=== PATIENT | male | born 1960 | race Caucasian/White ===

== ENCOUNTER → 2016-04-10 | Day surgery (SDC) | payer OTHER ==
[~2016-04-10] MED LIST: LIDOCAINE VISCOUS 2% 15ML UD ONE; SODIUM CHLORIDE LOCK 10 ML ONE; diphenhdrAMINE HCL 50 MG/1 ML VL ONE
[2016-04-10 07:24] LABS: Basophils # (auto) 0 uL; Basophils % (auto) 0.6 % (0.0-2.0); Eosinophils # (auto) 0.1 uL; Eosinophils % (auto) 1.6 % (0.0-7.0); Hematocrit 43.4 % (41.0-53.0); Hemoglobin 14.5 g/dL (13.5-17.5); Lymphocytes # (auto) 2.2 uL; Lymphocytes % (auto) 35.8 % (10.0-50.0); Mean Corpuscular Hgb Conc. 33.3 g/dL (32.0-36.0); Mean Corpuscular Volume 86.9 fL (80.0-100.0); Mean Platelet Volume 9.1 fL (7.4-10.4); Monocytes # (auto) 0.5 uL; Monocytes % (auto) 7.6 % (0.0-12.0); Neutrophils # (auto) 3.4 uL; Neutrophils % (auto) 54.4 % (37.0-80.0); Platelet Count (auto) 240 10^3/uL (140-450); Red Cell Distribution Width 13.7 % (11.6-16.0); White Blood Cell 6.2 10^3/uL (4.4-10.8)
[2016-04-10 07:31] LABS: INR 1.15 (0.9-1.15); Partial Thromboplastin Time 26.3 sec (22.64-33.71); Prothrombin Time 11.8 sec (9.37-12.3)
[2016-04-10] MEDS: fentaNYL CITRATE 100 MCG/2 ML VL ONE ×3 (09:28→09:39)
[2016-04-10] MEDS: MIDAZOLAM HCL 5 MG/ML-1ML VIAL ONE ×3 (09:28→09:39)
[2016-04-10 10:25] VITALS: BP 125/62
== END | disposition home or self-care (01) ==
LOC: GI 06:44
PROVIDERS: ATTEND Internal Medicine Gastroenterology
DX: Z12.11 Encounter for screening for malignant neoplasm of colon (principal); K62.89 Other specified diseases of anus and rectum; Z80.0 Family history of malignant neoplasm of digestive organs; K20.9 Esophagitis, unspecified; K21.9 Gastro-esophageal reflux disease without esophagitis; K22.70 Barrett's esophagus without dysplasia
CPT/HCPCS: 36415; 43235; 45378; 85025; 85610; 85730; J1200; J2250; J3010; J7030

== ENCOUNTER 2018-10-18 07:45 | Inpatient (IN) | payer OTHER ==
[~2018-10-18] VITALS: Ht 177.8 cm; Wt 96.5 kg
[2018-10-18] VITALS (12 sets, daily range): BP systolic 109–130; BP diastolic 68–79
[2018-10-18] MEDS ORDERED: ceFAZolin 1GM/50ML 100 ML IV ONE (08:23)
[2018-10-18] MEDS ORDERED: ACETAMINOPHEN IV 100 ML IV ONE (08:23)
[2018-10-18] MEDS ORDERED: ACETAMINOPHEN IV 1000 MG/100ML (10MG/ML) IV ONE (08:30)
[2018-10-18] MEDS ORDERED: PREGABALIN CAPSULE 75 MG CAP PO ONE (08:30)
[2018-10-18] MEDS ORDERED: CELECOXIB 100 MG CAP PO ONE (08:30)
[2018-10-18] MEDS ORDERED: BUPIVACAINE W/ EPINEPH 0.25% INJ 50ML MDV ONE (09:50)
[2018-10-18] MEDS ORDERED: TRANEXAMIC ACID 20 ML ONE (09:50)
[2018-10-18] MEDS ORDERED: KETOROLAC TROMETH 30 MG/ML 1ML VIAL ONE (09:51)
[2018-10-18] MEDS ORDERED: MORPHINE SULF(PF) 0.5MG/ML 10ML VIAL ONE ×2 (09:53→12:12)
[2018-10-18] MEDS ORDERED: TETRACAINE 1% INJ 2 ML VIAL IJ ONE (12:05)
[2018-10-18] MEDS ORDERED: MIDAZOLAM HCL 1MG/1ML-2 ML VIAL ONE ×2 (12:09→12:18)
[2018-10-18] MEDS ORDERED: PHENYLEPHRINE HCL 10 MG/ML VL ONE (12:12)
[2018-10-18] MEDS ORDERED: SODIUM CHLORIDE LOCK 20 ML ONE (12:12)
[2018-10-18] MEDS ORDERED: ePHEDrine SULFATE 50 MG/ML AMP ONE (12:12)
[2018-10-18] MEDS ORDERED: LIDOCAINE 2% (LOCAL ANESTH.) PF 5ml SDV ONE (12:34)
[2018-10-18] MEDS ORDERED: PROPOFOL 10 MG/ML 20 ML IV ONE ×3 (12:34→14:01)
[2018-10-18] MEDS ORDERED: diphenhdrAMINE HCL 50 MG/1 ML VL ONE (12:38)
[2018-10-18] MEDS ORDERED: METOCLOPRAMIDE HCL 5MG/ml INJ 2ml VIAL ONE (12:38)
[2018-10-18] MEDS ORDERED: diphenhdrAMINE HCL 50 MG/1 ML VL IV PRN (14:00)
[2018-10-18] MEDS ORDERED: KETOROLAC TROMETH 15 mg/ml 1ML VL IV PRN (14:00)
[2018-10-18] MEDS ORDERED: ePHEDrine SULFATE 50 MG/ML AMP IV PRN (14:00)
[2018-10-18] MEDS ORDERED: HYDROmorphone HCL 2 MG/ML VL IV PRN (14:00)
[2018-10-18] MEDS ORDERED: ONDANSETRON HCL 4 MG/2 ML VIAL IV ONE (14:00)
[2018-10-18] MEDS ORDERED: NALOXONE HCL 0.4 MG/ML VIAL IV PRN ×2 (14:00)
[2018-10-18] MEDS ORDERED: LACTATED RINGER'S 1,000 ML IV SCH (14:36)
[2018-10-18] MEDS ORDERED: ACETAMINOPHEN 325 MG TAB PO PRN (14:45)
--- NOTE | 2018-10-18 16:06 | NUR ---
MS admit from OR SEDA LEE admitted to tele/MS after SBAR received. Patient oriented to KEE BARNES RN primary RN, unit, room 244-7, bed, and unit policies regarding patient care and visiting hours. Patient weighed by bedscale and encouraged to call if they need something. All questions and concerns addressed, patient verbalized understanding. Bed in low and locked position, rails up x2, no-slip socks on. SCD machine in place to left leg, incentive spirometry provided, patient return demonstration reinforced. Continuous pulse oximetry at bedside, q hour vital signs for duramorph recovery in place and will be monitored. Dressing to right knee clean dry intact, patient has no complaints of pain, still unable to move lower extremities. Page to physical therapy for CPM set up.
[2018-10-18] MEDS: ceFAZolin 1GM/50ML 50 ML IV SCH ×2 (16:30→21:26)
[2018-10-18] MEDS: KETOROLAC TROMETH 15 mg/ml 1ML VL IV SCH (18:00)
[2018-10-18] MEDS: TAMSULOSIN HYDROCHLORIDE 0.4 MG CAP PO SCH (18:38)
--- NOTE | 2018-10-18 19:35 | NUR ---
Opening Shift Note Assumed care of patient, awake and alert. No S/S of distress/SOB or pain. Dressing to right knee dry and intact, on CPM machine at 45 deg. Instructed on POC and to call for assist PRN, patient verbalized understanding, call light within reach, guards at bedside, will continue to monitor for changes Q1hr and PRN.
[2018-10-18] MEDS: oxyCODONE ER 10 MG TAB PO SCH (21:27)
[2018-10-18] MEDS: DOCUSATE SOD 100 MG CAP PO SCH (21:27)
[2018-10-18] MEDS: SODIUM CHLOR 0.9% PF (SALINE LOCK) 10ML VIAL/SYR IV SCH (22:48)
[2018-10-19] VITALS (19 sets, daily range): BP systolic 102–131; BP diastolic 59–85
[2018-10-19] MEDS: ONDANSETRON HCL 4 MG/2 ML VIAL IV PRN ×3 (00:11→19:44)
[2018-10-19] MEDS: KETOROLAC TROMETH 15 mg/ml 1ML VL IV SCH ×5 (00:11→23:20)
[2018-10-19] MEDS: ceFAZolin 1GM/50ML 50 ML IV SCH (02:59)
[2018-10-19] MEDS: SODIUM CHLOR 0.9% PF (SALINE LOCK) 10ML VIAL/SYR IV SCH ×3 (06:10→22:21)
[2018-10-19 06:19] LABS: Hematocrit 38.7 % (41.0-53.0); Hemoglobin 13.3 g/dL (13.5-17.5)
[2018-10-19 06:57] LABS: Potassium 4.3 mmol/L (3.5-5.1)
[2018-10-19 07:07] LABS: Albumin 3.1 g/dL (3.4-5.0); BUN/Creatinine Ratio 27.2; Bilirubin, Total 0.4 mg/dL (0.2-1.0); Calcium 8.2 mg/dL (8.5-10.1)
--- NOTE | 2018-10-19 08:15 | NUR ---
DR ZEPEDA AT BEDSIDE NO NEW ORDERS
[2018-10-19] MEDS: DOCUSATE SOD 100 MG CAP PO SCH ×2 (09:47→22:22)
[2018-10-19] MEDS: ENOXAPARIN SOD 40 MG/0.4 ML SYRINGE SC SCH (09:47)
[2018-10-19] MEDS: PANTOPRAZOLE 40 MG TAB PO SCH (09:48)
[2018-10-19] MEDS: DULoxetine HCL 30 MG CAP PO SCH (09:48)
[2018-10-19] MEDS: LISINOPRIL 10 MG TAB PO SCH (09:50)
[2018-10-19] MEDS: oxyCODONE ER 10 MG TAB PO SCH ×2 (09:51→22:21)
[2018-10-19] MEDS ORDERED: ASPI-404 PO (10:56)
[2018-10-19] MEDS ORDERED: LISI10TA6 PO (10:56)
[2018-10-19] MEDS ORDERED: OMEP20TA PO (10:56)
[2018-10-19] MEDS ORDERED: DULO60CA PO (10:56)
[2018-10-19] MEDS ORDERED: ACET-1156 PO (10:56)
[2018-10-19] MEDS ORDERED: CALCTAB25 PO (10:56)
[2018-10-19] MEDS ORDERED: TAMS0.4C36 PO (10:56)
[2018-10-19] MEDS ORDERED: SENN1TAB14 PO (10:56)
[2018-10-19] MEDS ORDERED: AMIT25TA9 PO (10:56)
--- NOTE | 2018-10-19 11:55 | NUR ---
PHYSICAL THERAPY AT BEDSIDE PATIENT UP OUT OF BED, AMBULATED WITH FWW TOE TOUCH TO BATHROOM AND AMBULATED BACK WITH STANDBY ASSIST. TOLERATED IT WELL, BACK ON CPM AT THIS TIME.
--- NOTE | 2018-10-19 13:00 | NUR ---
DR MCCOY AT BEDSIDE
--- NOTE | 2018-10-19 13:13 | NUR ---
patient removed right leg from CPM due to severe patient and discomfort. right heel up with rolled towel. patient resting.
[2018-10-19] MEDS: HYDROmorphone HCL 2 MG/ML VL IV PRN ×2 (14:44→19:45)
[2018-10-19] MEDS: TAMSULOSIN HYDROCHLORIDE 0.4 MG CAP PO SCH (17:37)
--- NOTE | 2018-10-19 20:00 | NUR ---
OPENING NOTE RECEIVED REPORT FROM MARIE RN. ASSUMING ROLE OF CARE OF PATIENT AT THIS TIME. PATIENT SHOWING NO SIGN OF DISTRESS, SHORTNESS OF BREATH, AND PATIENT STATES CONTINUOUS PAIN AT 10/10. PATIENT WILL BE MEDICATED PER PAIN PROTOCOL WHEN AVAILABLE. PATIENT CURRENTLY ON CPM MACHINE AT 45 DEGREES. BED LOWERED, CALL LIGHT WITHIN REACH, AND PATIENT WILL BE ROUNDED ON EVERY HOUR AND NEEDED.
--- NOTE | 2018-10-19 23:00 | NUR ---
PATIENT TAKEN OFF CPM. PATIENT REQUESTING TO BE TAKEN OFF AT THIS TIME. PATIENT HAS ALREADY BEEN ON THREE TIMES TODAY. PATIENT STATING WANTING TO REST LEG. WILL CONTINUE TO MONITOR
[2018-10-20] MEDS: ONDANSETRON HCL 4 MG/2 ML VIAL IV PRN ×3 (03:12→16:15)
[2018-10-20] MEDS: HYDROmorphone HCL 2 MG/ML VL IV PRN ×3 (03:12→16:15)
[2018-10-20] MEDS: KETOROLAC TROMETH 15 mg/ml 1ML VL IV SCH ×3 (06:00→17:28)
[2018-10-20 06:01] VITALS: BP 107/64
[2018-10-20 06:06] LABS: Hematocrit 36.3 % (41.0-53.0); Hemoglobin 12.6 g/dL (13.5-17.5)
[2018-10-20] MEDS: SODIUM CHLOR 0.9% PF (SALINE LOCK) 10ML VIAL/SYR IV SCH ×3 (06:23→21:29)
--- NOTE | 2018-10-20 06:23 | NUR ---
PATIENT REQUESTING TO BE PLACED ON CPM MACHINE AT A LATER TIME PER PATIENT REQUEST, THEY WOULD LIKE TO SLEEP A LITTLE LONGER AND BEING PUT ON CAUSES PAIN AND WOULD WAKE THEM UP. WILL INFORM DAYSHIFT RN.
[2018-10-20 08:10] VITALS: BP 131/74
--- NOTE | 2018-10-20 08:10 | NUR ---
Opening Shift Note Assumed care of patient, awake and alert. Patient reported pain on right knee. Right knee dressing is intact and dry.Ice was applied to right knee and elevated onto the CPM machine. Patient will be medicated per pain protocol when available. Instructed on POC and to call for assist PRN, will continue to monitor for changes.
[2018-10-20 09:00] VITALS: BP 131/74
[2018-10-20] MEDS: ENOXAPARIN SOD 40 MG/0.4 ML SYRINGE SC SCH (09:42)
[2018-10-20] MEDS: DULoxetine HCL 30 MG CAP PO SCH (09:42)
[2018-10-20] MEDS: PANTOPRAZOLE 40 MG TAB PO SCH (09:43)
[2018-10-20] MEDS: oxyCODONE ER 10 MG TAB PO SCH ×2 (09:43→21:29)
[2018-10-20] MEDS: LISINOPRIL 10 MG TAB PO SCH (09:43)
[2018-10-20] MEDS: DOCUSATE SOD 100 MG CAP PO SCH ×2 (09:44→21:29)
--- NOTE | 2018-10-20 10:00 | NUR ---
DR LOPEZ AT BEDSIDE ANESTHESIOLOGIST
--- NOTE | 2018-10-20 11:25 | NUR ---
PATIENT AMBULATING WITH PHYSICAL THERAPY
[2018-10-20 13:00] VITALS: BP 129/68
--- NOTE | 2018-10-20 13:20 | NUR ---
DR MCCOY AT BEDSIDE
--- NOTE | 2018-10-20 14:10 | NUR ---
Dressing change Dressing change performed per MD order. Patient tolerated well. Area is clean, dry, and edematous. Wound bed approximated no drainage, all grace intact.
[2018-10-20 17:00] VITALS: BP 118/67
[2018-10-20] MEDS: OXYCODONE W/ ACETAMINOPHEN 5/325MG TABLET PO PRN (17:28)
[2018-10-20] MEDS: TAMSULOSIN HYDROCHLORIDE 0.4 MG CAP PO SCH (17:28)
--- NOTE | 2018-10-20 20:00 | NUR ---
OPENING NOTE RECEIVED REPORT FROM DAYSHIFT RN. ASSUMING ROLE OF CARE OF PATIENT AT THIS TIME. PATIENT SHOWING NO SIGN OF DISTRESS, SHORTNESS OF BREATH, AND PATIENT DENIES ANY PAIN AT THIS TIME. PATIENT EDUCATED ON PLAN OF CARE FOR THE NIGHT AND PATIENT VERBALIZED UNDERSTANDING. PATIENT ON CPM AT THIS TIME. BED LOWERED, CALL LIGHT WITHIN REACH, AND PATIENT WILL BE ROUNDED ON EVERY HOUR AND NEEDED.
--- NOTE | 2018-10-20 22:00 | NUR ---
PATIENT TAKEN OFF CPM AT THIS TIME. PATIENT REQUESTING TO BE TAKEN OFF AT THIS TIME. PER PATIENT, THEY HAVE BEEN OFF MOST OF THE DAY. WOULD LIKE TO REST LEG AT THIS TIME.
[2018-10-21 00:41] VITALS: BP 109/64
[2018-10-21] MEDS: ONDANSETRON HCL 4 MG/2 ML VIAL IV PRN (01:42)
[2018-10-21] MEDS: HYDROmorphone HCL 2 MG/ML VL IV PRN (01:42)
[2018-10-21] MEDS: KETOROLAC TROMETH 15 mg/ml 1ML VL IV SCH ×3 (05:19→11:41)
[2018-10-21] MEDS: SODIUM CHLOR 0.9% PF (SALINE LOCK) 10ML VIAL/SYR IV SCH ×2 (05:19→14:45)
[2018-10-21 05:43] VITALS: BP 116/55
[2018-10-21] MEDS: OXYCODONE W/ ACETAMINOPHEN 5/325MG TABLET PO PRN ×2 (05:48→17:34)
--- NOTE | 2018-10-21 08:00 | NUR ---
Opening Shift Note Assumed care of patient, awake and alert. No S/S of distress/SOB or pain. Instructed on POC and to call for assist PRN, will continue to monitor for changes Q1hr and PRN.
[2018-10-21 08:18] LABS: Hematocrit 33.6 % (41.0-53.0); Hemoglobin 11.6 g/dL (13.5-17.5)
[2018-10-21 08:49] VITALS: BP 94/54
[2018-10-21] MEDS: ENOXAPARIN SOD 40 MG/0.4 ML SYRINGE SC SCH (09:33)
[2018-10-21] MEDS: PANTOPRAZOLE 40 MG TAB PO SCH (09:34)
[2018-10-21] MEDS: DULoxetine HCL 30 MG CAP PO SCH (09:35)
[2018-10-21] MEDS: DOCUSATE SOD 100 MG CAP PO SCH (09:36)
[2018-10-21] MEDS: oxyCODONE ER 10 MG TAB PO SCH (09:36)
--- NOTE | 2018-10-21 11:23 | NUR ---
PAGED PHYSICAL THERAPIST RE: PATIENT WANTS TO WALK.
[2018-10-21] MEDS: LISINOPRIL 10 MG TAB PO SCH (12:13)
[2018-10-21 13:00] VITALS: BP 102/55
--- NOTE | 2018-10-21 13:10 | NUR ---
SPOKE TO MIMI AT [facility] SHE STATED THAT SHE WILL TALK WITH HER TRAUMA REGISTRAR TO HAVE PT PLACED ON SWIM INSTRUCTOR STATUS WHILE LOOKING FOR SNF FOR THIS PT.
--- NOTE | 2018-10-21 13:37 | NUR ---
Spoke to Fab Hinton, [facility] Asst. Fab states that they already arranged the SNF placement. Patient is going to [facility]. For report to call [phone]. Per Fab if patient is okay to be transported by wheelchair van, they will arrange the transportation.
--- NOTE | 2018-10-21 13:39 | NUR ---
Per doctor Benny, patient is okay to be transported via wheelchair van.
--- NOTE | 2018-10-21 15:50 | NUR ---
SPOKE TO CARMEN. INFORMED HER THAT PATIENT HAS A BED AT [facility] BUT HAS NO RECEIVING DOCTOR. CARMEN STATES SHE HAS TO GO THROUGH A PROCESS OF CONTACTING [facility] BUT THEY ARE CLOSED BY THIS TIME. CARMEN STATES TO ASK WILLIAM WHO THE RECEIVING DOCTOR IS.
--- NOTE | 2018-10-21 16:07 | NUR ---
SPOKE TO WILLIAM BALL, [facility] TECHNICIAN. ASKED HIM WHO THE RECEIVING DOCTOR IS. WILLIAM STATES HE DOES NOT KNOW. WILLIAM STATES TO GO AHEAD AND TRANSFER PATIENT TO [facility].
[2018-10-21 16:52] VITALS: BP 95/55
--- NOTE | 2018-10-21 17:45 | NUR ---
Patient requested for IV pain medication. Patient informed he cannot get IV pain medication as he has a discharge order. Patient was so upset and asking to talk to charge nurse. Charge nurse informed.
--- NOTE | 2018-10-21 18:10 | NUR ---
Discharge instructions given as ordered. All questions and concerns addressed. Patient verbalized understanding. Medication reconciliation form completed and copy given to patient. IV removed with catheter intact, pressure dressing applied. Patient taken to vehicle via wheelchair with all personal belongings, accompanied by prisoner staff . No distress noted at time of departure.
== END 2018-10-21 18:27 | DRG 470 ==
LOC: SUR 07:45 → EAST 16:09 → EEVIPCON 16:09
PROVIDERS: ADMIT Orthopaedic Surgery Adult Reconstructive Orthopaedic Surgery; ATTEND Orthopaedic Surgery Adult Reconstructive Orthopaedic Surgery
PROC: 0SRC0J9 Replacement of Right Knee Joint with Synthetic Substitute, Cemented, Open Approach (ICD-10-PCS; principal; 2018-10-18 12:03)
DX: M17.11 Unilateral primary osteoarthritis, right knee (principal); I10 Essential (primary) hypertension; G47.33 Obstructive sleep apnea (adult) (pediatric); E66.9 Obesity, unspecified; F41.9 Anxiety disorder, unspecified; F32.9 Major depressive disorder, single episode, unspecified; N40.0 Benign prostatic hyperplasia without lower urinary tract symptoms; F15.90 Other stimulant use, unspecified, uncomplicated; Z68.30 Body mass index [BMI] 30.0-30.9, adult; Z87.891 Personal history of nicotine dependence; Z79.899 Other long term (current) drug therapy
CPT/HCPCS: 36415; 73560; 73562; 80053; 85014; 85018; 86850; 86900; 86901; 97110; 97116; 97530; G0378; J0131; J0690; J1885; J2001; J2250; J2405; J2704

== ENCOUNTER 2019-03-10 07:24 | Inpatient (IN) | payer OTHER ==
--- NOTE | 2017-03-15 19:30 | NUR ---
Opening Shift Note Assumed care of patient, awake and alert No S/S of distress/SOB. Complaining of pain to left leg 10/10. Placed back on CPM machine. Shackled to bed with right hand. Skin clear. Peripheral pulses palpable bilaterally. Shackles to BLE. SCD in place. Instructed on POC and to call for assist PRN, will continue to monitor for changes Q1hr and PRN.
[~2019-03-10] VITALS: Ht 177.8 cm; Wt 105.0 kg
[2019-03-10] VITALS (8 sets, daily range): BP systolic 117–129; BP diastolic 68–79
[~2019-03-10 07:24] MED LIST changes: +ACET-1156 PO; +AMIT25TA9 PO; +CALCTAB25 PO; +DULO60CA PO; -LIDOCAINE VISCOUS 2% 15ML UD ONE; +LISI10TA6 PO; +OMEP20TA PO; +SENN1TAB14 PO; -SODIUM CHLORIDE LOCK 10 ML ONE; +TAMS0.4C36 PO; -diphenhdrAMINE HCL 50 MG/1 ML VL ONE
[2019-03-10] MEDS ORDERED: ceFAZolin 1GM/50ML 100 ML IV ONE (08:03)
[2019-03-10] MEDS ORDERED: ACETAMINOPHEN IV 100 ML IV ONE ×2 (08:04→08:16)
[2019-03-10 08:06] LABS: Basophils # (auto) 0.1 uL; Basophils % (auto) 1.5 % (0.0-2.0); Eosinophils # (auto) 0.1 uL; Eosinophils % (auto) 2.6 % (0.0-7.0); Hematocrit 41.8 % (41.0-53.0); Hemoglobin 14.2 g/dL (13.5-17.5); Lymphocytes # (auto) 1.9 uL; Lymphocytes % (auto) 37.2 % (10.0-50.0); Mean Corpuscular Hemoglobin 28.8 pg (28.0-32.0); Mean Corpuscular Hgb Conc. 33.9 g/dL (32.0-36.0); Monocytes # (auto) 0.5 uL; Monocytes % (auto) 10.5 % (0.0-12.0); Neutrophils # (auto) 2.4 uL; Neutrophils % (auto) 48.2 % (37.0-80.0); Nucleated Red Blood Cells % 0.1 %; Platelet Count (auto) 226 10^3/uL (140-450); Red Blood Cells 4.92 10^6/uL (4.5-5.90); Red Cell Distribution Width 15.7 % (11.8-14.3)
[2019-03-10 08:22] LABS: INR 1.03 (0.9-1.15); Partial Thromboplastin Time 26.3 sec (23.64-32.05)
[2019-03-10] MEDS ORDERED: PREGABALIN CAPSULE 75 MG CAP PO ONE (08:30)
[2019-03-10] MEDS ORDERED: ACETAMINOPHEN IV 1000 MG/100ML (10MG/ML) IV ONE (08:30)
[2019-03-10] MEDS ORDERED: CELECOXIB 100 MG CAP PO ONE (08:30)
[2019-03-10 08:35] LABS: BUN/Creatinine Ratio 17.3; Calcium 8.6 mg/dL (8.5-10.1); Potassium 3.8 mmol/L (3.5-5.1)
[2019-03-10] MEDS ORDERED: ePHEDrine SULFATE 50 MG/ML AMP ONE ×2 (11:29→13:35)
[2019-03-10] MEDS ORDERED: STERILE WATER 10 ML ONE ×2 (11:29→11:30)
[2019-03-10] MEDS ORDERED: PHENYLEPHRINE HCL 10 MG/ML VL ONE (11:30)
[2019-03-10] MEDS ORDERED: TRANEXAMIC ACID 10 ML ONE (12:08)
[2019-03-10] MEDS ORDERED: BUPIVACAINE W/ EPINEPH 0.25% INJ 50ML MDV ONE (12:08)
[2019-03-10] MEDS ORDERED: MORPHINE SULF(PF) 0.5MG/ML 10ML VIAL ONE ×2 (12:10→12:42)
[2019-03-10] MEDS ORDERED: KETOROLAC TROMETH 30 MG/ML 1ML VIAL ONE (12:10)
[2019-03-10] MEDS ORDERED: VANCOMYCIN HCL 1000 MG VL ONE (12:27)
[2019-03-10] MEDS ORDERED: TETRACAINE 1% INJ 2 ML VIAL IJ ONE (12:33)
[2019-03-10] MEDS ORDERED: MIDAZOLAM HCL 1MG/1ML-2 ML VIAL ONE ×2 (12:42→13:08)
[2019-03-10] MEDS ORDERED: diphenhdrAMINE HCL 50 MG/1 ML VL ONE (12:43)
[2019-03-10] MEDS ORDERED: METOCLOPRAMIDE HCL 5MG/ml INJ 2ml VIAL ONE (12:43)
[2019-03-10] MEDS ORDERED: PROPOFOL 10 MG/ML 20 ML IV ONE (12:44)
[2019-03-10] MEDS ORDERED: LIDOCAINE 1% (LOCAL ANESTH.) PF 5ml SDV ONE (12:44)
[2019-03-10] MEDS ORDERED: LIDOCAINE HCL 2% TOP JELLY 5ML TOP ONE (13:11)
[2019-03-10] MEDS ORDERED: HYDROmorphone HCL 2 MG/ML VL IV PRN (13:30)
[2019-03-10] MEDS ORDERED: ONDANSETRON HCL 4 MG/2 ML VIAL IV PRN ×3 (13:30→15:15)
[2019-03-10] MEDS ORDERED: diphenhdrAMINE HCL 50 MG/1 ML VL IV PRN (13:30)
[2019-03-10] MEDS ORDERED: NALOXONE HCL 0.4 MG/ML VIAL IV PRN ×2 (13:30)
[2019-03-10] MEDS ORDERED: KETOROLAC TROMETH 30 MG/ML 1ML VIAL IV PRN (13:30)
[2019-03-10] MEDS ORDERED: ePHEDrine SULFATE 50 MG/ML AMP IV PRN (13:30)
[2019-03-10] MEDS: LACTATED RINGER'S 1,000 ML IV SCH (15:06)
[2019-03-10] MEDS ORDERED: NITROGLYCERIN 0.4 MG SL TAB SL PRN (15:15)
[2019-03-10] MEDS ORDERED: ACETAMINOPHEN 325 MG TAB PO PRN (15:15)
[2019-03-10] MEDS ORDERED: CALCIUM CARB 500 MG CHEW TAB PO PRN (15:15)
[2019-03-10] MEDS ORDERED: MORPHINE SULF INJ 2 MG/ML SYRINGE 1ML IV PRN (15:15)
[2019-03-10] MEDS: ceFAZolin 1GM/50ML 50 ML IV SCH ×2 (16:45→21:28)
--- NOTE | 2019-03-10 17:40 | NUR ---
Telemetry admit from PACU SEDA LEE admitted to Telemetry unit after SBAR received. Patient oriented to Andreina Torres, RN primary RN, unit, room, bed, and unit policies regarding patient care and visiting hours. Patient now on continuous telemetry monitoring, tele box #27 and telemetry reading on arrival to unit is SR 67. Patient placed on bedside oxygen, weighed by bedscale and encouraged to call if they need something. All questions and concerns addressed, patient verbalized understanding. Note: Patient is on Duromorph precautions.
--- NOTE | 2019-03-10 17:50 | NUR ---
Patient placed on continuous B/P monitor and continuous pulse oximeter.
[2019-03-10] MEDS: KETOROLAC TROMETH 30 MG/ML 1ML VIAL IV SCH (18:32)
[2019-03-10] MEDS: TAMSULOSIN HYDROCHLORIDE 0.4 MG CAP PO SCH (18:32)
[2019-03-10] MEDS ORDERED: ASPI-404 PO (18:43)
[2019-03-10] MEDS: PANTOPRAZOLE 40 MG TAB PO SCH (21:23)
[2019-03-10] MEDS: DOCUSATE SOD 100 MG CAP PO SCH (21:23)
[2019-03-10] MEDS: SODIUM CHLOR 0.9% PF (SALINE LOCK) 10ML VIAL/SYR IV SCH (21:28)
[2019-03-10] MEDS: AMITRIPTYLINE HCL 25 MG TAB PO SCH (21:34)
[2019-03-11] VITALS (18 sets, daily range): BP systolic 112–137; BP diastolic 60–84
[2019-03-11] MEDS: KETOROLAC TROMETH 30 MG/ML 1ML VIAL IV SCH ×4 (00:04→17:30)
[2019-03-11] MEDS: LACTATED RINGER'S 1,000 ML IV SCH ×3 (01:41→21:06)
[2019-03-11] MEDS: ceFAZolin 1GM/50ML 50 ML IV SCH (04:26)
[2019-03-11 06:01] LABS: Hematocrit 36.4 % (41.0-53.0); Hemoglobin 12.6 g/dL (13.5-17.5)
[2019-03-11] MEDS: SODIUM CHLOR 0.9% PF (SALINE LOCK) 10ML VIAL/SYR IV SCH ×3 (06:04→22:44)
[2019-03-11 06:12] LABS: Potassium 4.1 mmol/L (3.5-5.1)
[2019-03-11 06:20] LABS: BUN/Creatinine Ratio 16.3; Bilirubin, Total 0.4 mg/dL (0.2-1.0); Calcium 8.5 mg/dL (8.5-10.1); Total Protein 5.6 g/dL (6.4-8.2)
--- NOTE | 2019-03-11 07:40 | NUR ---
Opening Shift Note Assumed care of patient, awake and alert. No S/S of distress/SOB or pain. Instructed on POC and to call for assist PRN, will continue to monitor for changes Q1hr and PRN. Bed locked in lowest position with two side rails up and call light in reach.
[2019-03-11] MEDS: LISINOPRIL 10 MG TAB PO SCH (09:41)
[2019-03-11] MEDS: DULoxetine HCL 30 MG CAP PO SCH (09:41)
[2019-03-11] MEDS: HYDROcodone-ACET 5/325MG TAB PO PRN ×3 (09:42→22:43)
[2019-03-11] MEDS: DOCUSATE SOD 100 MG CAP PO SCH ×2 (09:42→22:43)
[2019-03-11] MEDS: ENOXAPARIN SOD 40 MG/0.4 ML SYRINGE SC SCH (09:42)
[2019-03-11] MEDS: PANTOPRAZOLE 40 MG TAB PO SCH ×2 (09:43→22:43)
[2019-03-11] MEDS: HYDROmorphone HCL 2 MG/ML VL IV PRN ×2 (13:57→20:29)
--- NOTE | 2019-03-11 14:30 | NUR ---
PATIENT TOLERATED CPM MACHINE WELL FOR ABOUT 2 HOURS. SAID CPM MACHINE WAS TOO PAINFUL AND REQUESTED TO BE REMOVED. PATIENT ALSO WALED WITH PT AND TOLERATED WELL.
--- NOTE | 2019-03-11 16:30 | NUR ---
DR DARIUS HARPER
--- NOTE | 2019-03-11 17:30 | NUR ---
Q HOUR VS COMPLETE PER DURA MORPH PROTOCOL
[2019-03-11] MEDS: TAMSULOSIN HYDROCHLORIDE 0.4 MG CAP PO SCH (17:31)
[2019-03-11] MEDS ORDERED: AMITRIPTYLINE HCL 25 MG TAB ONE ×2 (22:34→22:36)
[2019-03-11] MEDS: AMITRIPTYLINE HCL 25 MG TAB PO SCH (22:42)
[2019-03-12] MEDS: KETOROLAC TROMETH 30 MG/ML 1ML VIAL IV SCH (00:33)
--- NOTE | 2019-03-12 04:41 | NUR ---
Patient had 600 mls of clear light catie colored urine this shift. No complaints of pain or discomfort. Will continue to monitor.
[2019-03-12 05:00] VITALS: BP 117/77
--- NOTE | 2019-03-12 06:30 | NUR ---
ROUNDS MADE, PATIENT DENIES PAIN AT THIS TIME.
[2019-03-12] MEDS: LACTATED RINGER'S 1,000 ML IV SCH ×2 (07:06→16:24)
[2019-03-12] MEDS: HYDROmorphone HCL 2 MG/ML VL IV PRN ×4 (07:51→22:40)
[2019-03-12 08:00] VITALS: BP 136/87
[2019-03-12 09:00] VITALS: BP 136/87
[2019-03-12] MEDS: DOCUSATE SOD 100 MG CAP PO SCH ×2 (09:25→22:41)
[2019-03-12] MEDS: DULoxetine HCL 30 MG CAP PO SCH (09:25)
[2019-03-12] MEDS: ENOXAPARIN SOD 40 MG/0.4 ML SYRINGE SC SCH (09:25)
[2019-03-12] MEDS: LISINOPRIL 10 MG TAB PO SCH (09:26)
[2019-03-12] MEDS: PANTOPRAZOLE 40 MG TAB PO SCH ×2 (09:26→22:44)
[2019-03-12] MEDS: HYDROcodone-ACET 5/325MG TAB PO PRN ×3 (10:45→19:15)
[2019-03-12 10:54] LABS: Hematocrit 38.1 % (41.0-53.0); Hemoglobin 12.9 g/dL (13.5-17.5)
[2019-03-12 13:00] VITALS: BP 141/76
[2019-03-12] MEDS: SODIUM CHLOR 0.9% PF (SALINE LOCK) 10ML VIAL/SYR IV SCH ×2 (14:00→22:50)
[2019-03-12 17:00] VITALS: BP 132/79
--- NOTE | 2019-03-12 17:00 | NUR ---
PATIENT AMBULATED WITH WALKER TO BATHROOM AND URINATED HAD SMALL BOWEL MOVEMENT.
--- NOTE | 2019-03-12 18:57 | NUR ---
PATIENT TOLERATED CPM MACHINE FOR 5 HOURS. PAIN MEDICATION GIVEN.
[2019-03-12] MEDS: TAMSULOSIN HYDROCHLORIDE 0.4 MG CAP PO SCH (19:14)
--- NOTE | 2019-03-12 20:00 | NUR ---
SURGICAL INCISION TO LEFT KNEE WITH DRESSING INTACT, CLEAN AND DRY. LEFT LEG NOTED WITH NON PITTING EDEMA. SKIN WARM AND DRY, NO REDNESS OR TENDERNESS NOTED. <3 SEC CAPILLARY REFILL TO LEFT TOES NOTED. ELEVATED LEFT LEG AND ASSISTED PATIENT WITH REPOSITIONING. WILL CONTINUE TO MONITOR.
[2019-03-12 22:00] VITALS: BP 112/67
[2019-03-12] MEDS ORDERED: AMITRIPTYLINE HCL 25 MG TAB ONE ×3 (22:17→22:22)
[2019-03-12] MEDS: AMITRIPTYLINE HCL 25 MG TAB PO SCH (22:40)
--- NOTE | 2019-03-12 23:00 | NUR ---
NOTED SMALL SKIN TEAR TO LEFT WRIST DUE TO METAL SHACKLE. REQUESTED GUARD TO LOOSEN ENOUGH FOR GOOD SKIN CIRCULATION. WOUND RED WITH NO DRAINAGE. CLEANSED WITH NS, PATTED DRY, PICTURE TAKEN THEN APPLIED ADHESIVE BANDAGE. WILL CONTINUE TO MONITOR.
[2019-03-13] MEDS: LACTATED RINGER'S 1,000 ML IV SCH ×3 (00:19→19:39)
[2019-03-13 05:00] VITALS: BP 146/99
[2019-03-13] MEDS: SODIUM CHLOR 0.9% PF (SALINE LOCK) 10ML VIAL/SYR IV SCH ×3 (05:35→21:29)
--- NOTE | 2019-03-13 06:42 | NUR ---
ROUNDS MADE, PATIENT ASLEEP AT THIS TIME. NO NONVERBAL CUES TO PAIN NOTED AND OBSERVED. GUARDS AT BEDSIDE.
[2019-03-13 07:39] LABS: Hematocrit 38.4 % (41.0-53.0); Hemoglobin 12.8 g/dL (13.5-17.5)
[2019-03-13] MEDS: HYDROcodone-ACET 5/325MG TAB PO PRN (07:44)
[2019-03-13 08:00] VITALS: BP 131/78
[2019-03-13 09:00] VITALS: BP 131/78
[2019-03-13] MEDS: DULoxetine HCL 30 MG CAP PO SCH (09:38)
[2019-03-13] MEDS: DOCUSATE SOD 100 MG CAP PO SCH ×2 (09:38→21:29)
[2019-03-13] MEDS: PANTOPRAZOLE 40 MG TAB PO SCH ×2 (09:38→21:40)
[2019-03-13] MEDS: LISINOPRIL 10 MG TAB PO SCH (09:39)
[2019-03-13] MEDS: ENOXAPARIN SOD 40 MG/0.4 ML SYRINGE SC SCH (09:41)
[2019-03-13] MEDS: HYDROmorphone HCL 2 MG/ML VL IV PRN ×2 (09:41→16:37)
[2019-03-13] MEDS ORDERED: traMADol HCL 50 MG TAB PO PRN (10:30)
[2019-03-13 13:00] VITALS: BP 125/71
[2019-03-13] MEDS: KETOROLAC TROMETH 30 MG/ML 1ML VIAL IV PRN ×2 (13:25→20:36)
[2019-03-13 17:00] VITALS: BP 128/86
[2019-03-13] MEDS: TAMSULOSIN HYDROCHLORIDE 0.4 MG CAP PO SCH (17:58)
--- NOTE | 2019-03-13 20:00 | NUR ---
PATIENT OFF CPM MACHINE
--- NOTE | 2019-03-13 21:00 | NUR ---
PATIENT C/O 10/23 LEFT PAIN REQUESTING PAIN MEDICATION. ADMINISTERED TORADOL 15MG IV PRESCRIBED. PATIENT TOLERATED WITH PAIN RELIEVED. WILL CONTINUE TO MONITOR PATIENT. DRESSING CHANGED TO LEFT KNEW CLEANSED AREA, ADELE CLEAN DRY AND INTACT. DRESSING WITH MEDIPORE TAPE APPLIED FOR SURGICAL INCISION. WILL YOU CONTINUE TO MONITOR PATIENT.
[2019-03-13] MEDS: AMITRIPTYLINE HCL 25 MG TAB PO SCH (21:29)
[2019-03-13 22:00] VITALS: BP 125/77
--- NOTE | 2019-03-14 | NUR ---
Spoke to Hospitalist Spoke to Dr Zapata regarding patient's status. Per MD Zapata SNF can take patient with Dr Elkin dozier and nursing home can arrange. SNF paperwork signed and placed in chart. Cheryl case management manager notified and states she will work on SNF transfer. Cont care Addendum: 03/15/19 at 0011 by Malu Knight RN Disregard time for 03/14/19 at 0000. Actual time of note is 03/14/19 at 1422
[2019-03-14 05:00] VITALS: BP 136/87
[2019-03-14] MEDS: SODIUM CHLOR 0.9% PF (SALINE LOCK) 10ML VIAL/SYR IV SCH ×3 (05:57→22:37)
[2019-03-14] MEDS: LACTATED RINGER'S 1,000 ML IV SCH ×2 (06:35→19:06)
--- NOTE | 2019-03-14 07:30 | NUR ---
Opening Shift Note Assumed care of patient, awake and alert. No S/S of distress/SOB or pain. Instructed on POC and to call for assist PRN. IS at bedside and patient instructed on use he verbalized understanding and retuned demonstration. SCD's to right left in place. CMP machine as ordered. No s/s of distress or sob noted. Guards at bedside. Will continue to monitor for changes Q1hr and PRN.
[2019-03-14] MEDS ORDERED: HYDR-4072 PO (07:41)
[2019-03-14] MEDS ORDERED: ENO40SY SC (07:41)
[2019-03-14] MEDS ORDERED: DOCU100C8 PO (07:41)
[2019-03-14] MEDS: KETOROLAC TROMETH 30 MG/ML 1ML VIAL IV PRN ×2 (08:44→16:29)
[2019-03-14 09:00] VITALS: BP 140/84
--- NOTE | 2019-03-14 10:30 | NUR ---
I called Charisse at [facility] [phone] regarding SNF order placed by Dr. Granger. Per Charisse they do not have a contract with any SNF's and that they will normally place the patient on a occupational therapy supervisor status and have them rehab here. I asked her about [facility], and she said that they do not have a contract with them and that it would have to go directly through the [facility]. I called Dr. Zapata and left a message asking about the SNF order placed by Dr. Granger.
[2019-03-14] MEDS: DULoxetine HCL 30 MG CAP PO SCH (10:36)
[2019-03-14] MEDS: DOCUSATE SOD 100 MG CAP PO SCH ×2 (10:36→22:37)
[2019-03-14] MEDS: ENOXAPARIN SOD 40 MG/0.4 ML SYRINGE SC SCH (10:36)
[2019-03-14] MEDS: LISINOPRIL 10 MG TAB PO SCH (10:37)
[2019-03-14] MEDS: PANTOPRAZOLE 40 MG TAB PO SCH ×2 (10:37→22:37)
--- NOTE | 2019-03-14 10:43 | NUR ---
Tele monitor returned to ICU, Spoke to [employer] and notified so she will pick it up from [facility]. Awaiting SNF transfer at this time. Patient laying in bed in no signs of acute distress or sob. Patient states he will be back on CMP machine after he washes up. COnt care
[2019-03-14 13:00] VITALS: BP 137/87
[2019-03-14] MEDS: HYDROcodone-ACET 10/325MG TAB PO PRN ×2 (13:18→22:44)
--- NOTE | 2019-03-14 14:33 | NUR ---
I faxed SNF packet to [facility].
--- NOTE | 2019-03-14 15:32 | NUR ---
I called [facility] [phone] and spoke with Lt Colin, he is going to have Br. Rouse give me a call. I received a phone call from Dr. Rouse and made him aware that Dr. Granger placed an order to have this patient transferred to group home facility-[facility]. Dr. Rouse stated that he would contact the [facility] and they will work on getting this patient over there.
[2019-03-14 17:00] VITALS: BP 127/77
[2019-03-14] MEDS: TAMSULOSIN HYDROCHLORIDE 0.4 MG CAP PO SCH (19:35)
[2019-03-14] MEDS: SENNA 8.6 MG TAB PO PRN (20:23)
[2019-03-14 22:00] VITALS: BP 117/65
[2019-03-14] MEDS: AMITRIPTYLINE HCL 25 MG TAB PO SCH (22:36)
--- NOTE | 2019-03-15 03:25 | NUR ---
Patient care endorsed endorsed care to Tawny palumbo
[2019-03-15] MEDS: SODIUM CHLOR 0.9% PF (SALINE LOCK) 10ML VIAL/SYR IV SCH ×3 (03:29→22:00)
[2019-03-15 05:00] VITALS: BP 113/76
[2019-03-15 09:00] VITALS: BP 139/87
[2019-03-15] MEDS: ENOXAPARIN SOD 40 MG/0.4 ML SYRINGE SC SCH (09:02)
[2019-03-15] MEDS: DULoxetine HCL 30 MG CAP PO SCH (09:02)
[2019-03-15] MEDS: DOCUSATE SOD 100 MG CAP PO SCH ×2 (09:03→22:59)
[2019-03-15] MEDS: LISINOPRIL 10 MG TAB PO SCH (09:03)
[2019-03-15] MEDS: HYDROcodone-ACET 10/325MG TAB PO PRN ×2 (09:03→17:02)
[2019-03-15] MEDS: PANTOPRAZOLE 40 MG TAB PO SCH ×2 (09:04→22:59)
[2019-03-15] MEDS: KETOROLAC TROMETH 30 MG/ML 1ML VIAL IV PRN ×2 (10:52→20:30)
[2019-03-15] MEDS: SENNA 8.6 MG TAB PO PRN (10:52)
--- NOTE | 2019-03-15 12:47 | NUR ---
Nutrition Assessment Notes please see attached link for complete assessment Est. Needs based on ABW (90 kg): 3937-2987 kcal (23-25 kcal/kgBW), 90-99 gms pro (1.0-1.1 gms/kgBW). Will continue to monitor pertinent labs and reassess nutrient need prn Addendum: 03/15/19 at [address] Amended: Links added.
[2019-03-15 13:00] VITALS: BP_SYST 119; BP_SYST 128; BP_DIAS 75; BP_DIAS 82
--- NOTE | 2019-03-15 13:02 | NUR ---
MD DARIUS HERNANDEZUNDED ON PATIENT
--- NOTE | 2019-03-15 13:49 | NUR ---
I called [facility] and spoke with Heladio in admitting, she said they are still waiting to hear from the shelter regarding the transfer of this patient. I called Dr. Rouse [phone] to discuss the transfer-no answer and unable to leave a message-voicemail is full.
[2019-03-15 17:00] VITALS: BP 130/86
[2019-03-15] MEDS: TAMSULOSIN HYDROCHLORIDE 0.4 MG CAP PO SCH (17:01)
[2019-03-15 20:00] VITALS: BP 112/65
[2019-03-15] MEDS: HYDROmorphone HCL 2 MG/ML VL IV PRN ×2 (20:00→23:45)
[2019-03-15 22:00] VITALS: BP 127/76
--- NOTE | 2019-03-15 22:00 | NUR ---
IV to CARIDAD area around site inflamed and hard to touch above insertion site. Patient complaining of pain 11/23. Discontinued IV. Elevating on pillows and warm compress applied. Will start new IV to other arm oscar. Continuing to monitor. Will notify Dr. Coffman in am or if symptoms worsen.
[2019-03-15] MEDS: AMITRIPTYLINE HCL 25 MG TAB PO SCH (23:30)
--- NOTE | 2019-03-15 23:30 | NUR ---
New IV started to KARMEN 22 g. Patient stated, " My right arm feels much better since you removed that IV and gave me the compress and pillows to elevate. " Will continue to monitor closely. Pain meds given per order
[2019-03-16] MEDS: HYDROmorphone HCL 2 MG/ML VL IV PRN ×2 (04:00→16:12)
[2019-03-16 05:00] VITALS: BP 129/76
[2019-03-16] MEDS: SODIUM CHLOR 0.9% PF (SALINE LOCK) 10ML VIAL/SYR IV SCH ×3 (06:11→22:19)
--- NOTE | 2019-03-16 07:19 | NUR ---
Opening Shift Note Assumed care of patient, resting is bed with eyes closed. No S/S of distress/SOB or pain. Bed is set in lowest locked position with side rails up x2 for safety and call light is within reach. Will continue to monitor for changes Q1hr and PRN. Two guards are present at bedside at this time.
[2019-03-16 08:05] VITALS: BP 151/90
[2019-03-16 09:00] VITALS: BP 151/90
[2019-03-16] MEDS: ENOXAPARIN SOD 40 MG/0.4 ML SYRINGE SC SCH (09:49)
[2019-03-16] MEDS: DULoxetine HCL 30 MG CAP PO SCH (09:50)
[2019-03-16] MEDS: LISINOPRIL 10 MG TAB PO SCH (09:50)
[2019-03-16] MEDS: PANTOPRAZOLE 40 MG TAB PO SCH ×2 (09:50→22:17)
[2019-03-16] MEDS: HYDROcodone-ACET 10/325MG TAB PO PRN ×2 (09:50→15:04)
[2019-03-16] MEDS: DOCUSATE SOD 100 MG CAP PO SCH ×2 (09:50→22:00)
[2019-03-16 13:00] VITALS: BP 140/83
[2019-03-16 16:39] VITALS: BP 140/76
[2019-03-16] MEDS: TAMSULOSIN HYDROCHLORIDE 0.4 MG CAP PO SCH (18:09)
[2019-03-16] MEDS: SENNA 8.6 MG TAB PO PRN (18:47)
--- NOTE | 2019-03-16 19:25 | NUR ---
Opening Shift Note Report received from day shift RN. Assumed care of patient, awake and A&O x4. Patient currently on CPM and tolerating well. No S/S of distress/SOB noted at this time and patient denies pain. Dressing to left knee clean dry and intact. Patient has hand cuffs to both ankles and to left hand. Pulses palpable and no skin breakdown noted. Call light left within reach. Instructed on POC and to call for assist PRN, will continue to monitor for changes Q1hr and PRN.
[2019-03-16] MEDS ORDERED: AMITRIPTYLINE HCL 25 MG TAB ONE ×2 (22:12→22:13)
[2019-03-16] MEDS: AMITRIPTYLINE HCL 25 MG TAB PO SCH (22:18)
[2019-03-17 00:11] VITALS: BP 133/78
[2019-03-17 05:53] VITALS: BP 139/77
[2019-03-17] MEDS: SODIUM CHLOR 0.9% PF (SALINE LOCK) 10ML VIAL/SYR IV SCH ×2 (05:54→14:32)
--- NOTE | 2019-03-17 07:16 | NUR ---
Opening Shift Note Assumed care of patient, resting in bed with eyes closed. No S/S of distress/SOB or pain. Will continue to monitor for changes Q1hr and PRN. Bed is set in lowest locked position with side rails up x 2 for safety, and call light is within reach.
[2019-03-17 08:02] VITALS: BP 132/76
[2019-03-17 08:40] VITALS: BP 132/76
--- NOTE | 2019-03-17 09:23 | NUR ---
I called [facility] [employer] Charisse [phone] and left message asking for assistance with the transfer of this patient to SNF-assistance with helping us get a hold of someone at the [facility] because other case loader operator called the [facility] and can't get a hold of anyone.
[2019-03-17] MEDS: ENOXAPARIN SOD 40 MG/0.4 ML SYRINGE SC SCH (09:34)
[2019-03-17] MEDS: PANTOPRAZOLE 40 MG TAB PO SCH (09:34)
[2019-03-17] MEDS: DULoxetine HCL 30 MG CAP PO SCH (09:35)
[2019-03-17] MEDS: LISINOPRIL 10 MG TAB PO SCH (09:35)
[2019-03-17] MEDS: DOCUSATE SOD 100 MG CAP PO SCH (09:35)
[2019-03-17] MEDS: HYDROmorphone HCL 2 MG/ML VL IV PRN (09:36)
--- NOTE | 2019-03-17 12:03 | NUR ---
I called [facility] Card [employer] Charisse regarding patient needing CPM machine and who to order it from. I also spoke with patient's nurse who will contact MD for CPM order.
--- NOTE | 2019-03-17 12:22 | NUR ---
I called the [facility] and spoke with Dr Schmitt [phone] regarding the CPM machine order. I let him know that I sent it to [employer]-according to Dr. Rouse that company should just be able to bill the alf.
[2019-03-17 12:40] VITALS: BP 108/68
[2019-03-17] MEDS: HYDROcodone-ACET 10/325MG TAB PO PRN (12:59)
[2019-03-17 17:04] VITALS: BP 141/74
--- NOTE | 2019-03-17 17:25 | NUR ---
Discharge instructions given as ordered. All questions and concerns addressed. Patient verbalized understanding. IV removed with catheter intact, pressure dressing applied. Report given to Bárbara Lopez at [facility]. Patient transported by [facility] transportation, with guards present, with all personal belongings. No distress noted at time of departure. Transfer packet handed off to guards at bedside.
== END 2019-03-17 17:28 | DRG 470 ==
LOC: EEVIPCON 07:24 → SUR 07:24 → TELE-CENTR 07:25 → CENTRAL 03-17 01:21
PROVIDERS: ADMIT Orthopaedic Surgery Adult Reconstructive Orthopaedic Surgery; ATTEND Orthopaedic Surgery Adult Reconstructive Orthopaedic Surgery
PROC: 0SRD0J9 Replacement of Left Knee Joint with Synthetic Substitute, Cemented, Open Approach (ICD-10-PCS; principal; 2019-03-11)
PROC: 0QBH0ZZ Excision of Left Tibia, Open Approach (ICD-10-PCS; 2019-03-11)
PROC: 8E0YXBZ Computer Assisted Procedure of Lower Extremity (ICD-10-PCS; 2019-03-11)
DX: M17.12 Unilateral primary osteoarthritis, left knee (principal); N40.0 Benign prostatic hyperplasia without lower urinary tract symptoms; I10 Essential (primary) hypertension; F41.9 Anxiety disorder, unspecified; F32.9 Major depressive disorder, single episode, unspecified; Z96.651 Presence of right artificial knee joint; K21.9 Gastro-esophageal reflux disease without esophagitis; E66.9 Obesity, unspecified; Z68.33 Body mass index [BMI] 33.0-33.9, adult
CPT/HCPCS: 36415; 73560; 73562; 80048; 80053; 85014; 85018; 85025; 85610; 85730; 86850; 86900; 86901; 97116; 97530; G0378; J0131; J0690; J1885; J2250; J2405; J2704